=== PATIENT | female | born 1960 | race American Indian/Alaskan Native ===

== ENCOUNTER 2017-07-21 06:59 | Outpatient (CLI) | payer OTHER ==
--- NOTE | 2017-07-21 09:08 | Mammography Report ---
Bilateral mammogram: Compared to 06/23/16. CAD study utilized. Findings: Predominance adipose tissue bilaterally. Left breast smaller in size compared to right without significant interval change. No microcalcification or mass. Normal axilla. Impression: Benign findings. Annual followup recommended. BI-RADS CATEGORY: 2 = Benign ACR BI-RADS MAMMOGRAPHIC CODES: 0 = Needs additional imaging evaluation; 1 = Negative; 2 = Benign; 3 = Probably benign; 4 = Suspicious; 5 = Malignant; 6 = Known biopsy-proven malignancy COMMENT: 1. Dense breast tissue, i.e., adenosis, fibrocystic changes, etc., may obscure an underlying neoplasm. 2. Approximately 10% of cancers are not detected with mammography. 3. A negative mammography report should not delay biopsy if a clinically suspicious mass is present. COMMENT: Patient follow-up letters are generated in [employer].
== END 2017-07-21 07:00 | disposition home or self-care (01) ==
LOC: MAMMO 06:59
PROVIDERS: ATTEND Specialist
DX: Z12.31 Encounter for screening mammogram for malignant neoplasm of breast (principal)
CPT/HCPCS: 77067; G0202

== ENCOUNTER 2020-11-28 21:26 | Emergency (ER) | payer OTHER ==
[2020-11-28] MEDS ORDERED: DIPHtheria,PERTUSSIS(ACELL),TETANUS VACCINE/PF 0.5 ML VIAL IM ONE (22:09)
[2020-11-28] MEDS ORDERED: IBUPROFEN 800 MG TAB PO ONE (22:09)
--- NOTE | 2020-11-28 22:15 | Emergency Department Report ---
- General Chief Complaint: Laceration/Recheck/Suture Stated Complaint: CUT OFF PIECE OF PINKY Time Seen by Provider: 11/28/20 21:57 Source: patient Mode of arrival: Ambulatory Limitations: No Limitations - History of Present Illness Initial Comments: 60-year-old female presents to the ER today with complaints of laceration to her right fifth finger. Patient states that she accidentally cut the tip of her right fifth finger using a slicer. She states she was slicing tomatoes. This occurred around 8:30 PM. She reports bleeding, and mild pain to the distal aspect of the left fifth finger. She denies any associated numbness, tingling or weakness or any other symptoms at this time. She takes a baby aspirin per day, but no other blood thinners. -: Sudden Location: other (right 5th finger) Place: home Patient Tetanus UTD: No Context: accidental, sharp object use Associated Symptoms: pain. denies: loss of feeling/numbness, suspect foreign body present, unable to move injured part, weakness followed by dizziness, nausea/vomiting, fever Treatments Prior to Arrival: bandage - Related Data Previous Rx's Medication Instructions Recorded Last Taken Type Ibuprofen [Motrin] 800 mg PO Q8HR PRN #30 tablet 11/28/20 Unknown Rx Allergies Allergy/AdvReac Type Severity Reaction Status Date / Time latex Allergy Rash Unverified 02/13/15 08:47 ED Review of Systems ROS: Stated complaint: CUT OFF PIECE OF PINKY Other details as noted in HPI Comment: All other systems reviewed and negative Skin: other (Laceration right fifth finger.) ED Past Medical Hx - Past Medical History Hx Hypertension: Yes Additional medical history: Breast CA - Surgical History Past Surgical History?: Yes Hx Breast Surgery: Yes (left lumpectomy) - Social History Smoking Status: Never Smoker Substance Use Type: None - Medications Home Medications: Home Medications Medication Instructions Recorded Confirmed Last Taken Type Ibuprofen [Motrin] 800 mg PO Q8HR PRN #30 tablet 11/28/20 Unknown Rx ED Physical Exam - General Limitations: No Limitations General appearance: alert, in no apparent distress - Head Head exam: Present: atraumatic, normocephalic, normal inspection - Respiratory Respiratory exam: Absent: respiratory distress - Cardiovascular Cardiovascular Exam: Present: regular rate - Neurological Exam Neurological exam: Present: alert, oriented X3, CN II-XII intact, normal gait - Skin Skin exam: Present: other - Expanded Skin Exam Expanded Type of lesion: Present: laceration (Small very superficial avulsion laceration, measuring approximately 0.6 cm noted to the distal tip of the right fifth finger. Wound edges not well approximated, therefore unable to be repaired. Mild but active bleeding noted. Area is moderately tender to palpation. ) - Other Other exam information: Right fifth finger:Small very superficial avulsion laceration, measuring approximately 0.6 cm noted to the distal tip of the right fifth finger. Wound edges not well approximated, therefore unable to be repaired. There is partial avulsion of the distal nail plate, remaining nail intact; nailbed appears to be intact, noted. Mild but active bleeding noted. Area is moderately tender to palpation. Sensation intact. Cap refill normal ED Course Vital Signs 11/28/20 21:37 Temperature 97.9 F Pulse Rate 84 Respiratory 17 Rate Blood Pressure 184/74 O2 Sat by Pulse 99 Oximetry ED Medical Decision Making - Medical Decision Making Patient with a superficial skin avulsion laceration to the distal tip of the right fifth finger. Wound edges not well approximated and therefore repair not indicated. Bleeding controlled after Surgicel pressure dressing applied. Discussed wound care with patient. She is well-appearing, nontoxic does not appear to be in any acute distress and is stable for discharge. Critical care attestation.: If time is entered above; I have spent that time in minutes in the direct care of this critically ill patient, excluding procedure time. ED Disposition Clinical Impression: Avulsion of skin of finger Disposition: DC-01 TO HOME OR SELFCARE Is pt being admited?: No Does the pt Need Aspirin: No Condition: Stable Instructions: Wound Care, Adult Additional Instructions: Keep wound clean as discussed. Apply dressing as discussed. Take the Motrin as prescribed for pain. Follow-up closely with your primary care doctor. If the area starts to bleed uncontrollably, or if it starts to become red and draining pus or swollen return to the ER. Prescriptions: Ibuprofen [Motrin] 800 mg PO Q8HR PRN #30 tablet PRN Reason: Pain , Severe (7-10) Referrals: KERVIN HOLDEN MD [Primary Care Provider] - 3-5 Days Time of Disposition: 23:50
[2020-11-29 00:56] VITALS: BP 146/78
== END 2020-11-29 00:56 | disposition home or self-care (01) ==
LOC: ED 21:26
DX: S61.216A Laceration without foreign body of right little finger without damage to nail, initial encounter (principal); I10 Essential (primary) hypertension; Z98.890 Other specified postprocedural states; Z79.1 Long term (current) use of non-steroidal anti-inflammatories (NSAID); Z91.040 Latex allergy status; W26.8XXA Contact with other sharp object(s), not elsewhere classified, initial encounter; Y93.89 Activity, other specified; Y92.89 Other specified places as the place of occurrence of the external cause; Y99.8 Other external cause status
CPT/HCPCS: 90471; 90715; 99282